=== PATIENT | female | born 2000 | race Caucasian/White ===

== ENCOUNTER 2023-04-17 03:25 | Emergency (ER) | payer SELFPAY ==
[2023-04-17 04:57] LABS: #Basophils 0.1 thou/uL (0.0-0.2); #Eosinphils 0.1 thou/uL (0.0-0.7); #Monocytes 0.4 thou/uL (0.11-0.59); #Neutrophils 7.7 thou/uL (1.40-6.50); %Basophils 0.8 % (0.0-1.0); %Eosinophils 0.7 % (0.0-10.0); %Lymphocytes 20.1 % (21.0-51.0); %Neutrophils 74.2 % (42.0-75.0); Hematocrit 36.5 % (36.0-47.0); Hemoglobin 12.3 g/dL (12.0-16.0); Mean Corpuscular HGB CONC 33.7 g/dL (32.0-36.0); Mean Corpuscular Hemoglobin 30.7 pg (27.0-31.0); Mean Platelet Volume 9.4 fL (7.4-10.4); Platelet Count 332 10x3/uL (130-400); RBC Distribution Width 11.8 % (11.5-14.5); Red Blood Cell (RBC) Count 4.01 mill/uL (4.20-5.40); White Blood Cell (WBC) Count 10.4 10x3/uL (4.8-10.8)
[2023-04-17 05:22] LABS: Albumin 4.1 g/dL (3.5-5.0)
[2023-04-17 05:23] LABS: Chloride 101 mmol/L (98-107); Potassium 2.7 mmol/L (3.5-5.1); Sodium 139 mmol/L (136-145)
[2023-04-17 05:24] LABS: Calcium 8.5 mg/dL (7.8-10.44); Glucose 89 mg/dL (70-105)
[2023-04-17 05:25] LABS: Globulin 2.8 g/dL (2.4-3.5); Protein, Total 6.9 g/dL (6.0-8.3)
[2023-04-17 05:26] LABS: Anion Gap 16 mmol/L (10-20); Bilirubin, Total 0.6 mg/dL (0.2-1.2); Carbon Dioxide 25 mmol/L (22-29)
[2023-04-17 05:27] LABS: Alcohol 215.8 mg/dL (Less than 10); Alkaline Phosphatase 64 U/L (40-110); BHCG - Serum Negative (NEGATIVE); Pregs Control Background? CLEAR/WHITE (CLR/WHITE); Pregs Control Bar Appear? YES (CONTROL BAR)
[2023-04-17 05:28] LABS: Calc. Creatinine Clearance 0 mL/min (70-130); Estimated GFR 104
[2023-04-17 05:29] LABS: BUN (Urea Nitrogen) 7 mg/dL (7.0-18.7)
[2023-04-17 05:30] LABS: ALT (SGPT) 10 U/L (8-55); AST (SGOT) 21 U/L (5-34)
[2023-04-17] MEDS ORDERED: Potassium Chloride 20 MEQ TAB ONE (06:18)
== END 2023-04-17 06:27 ==
LOC: ERS 03:25
DX: F10.129 Alcohol abuse with intoxication, unspecified (principal); E03.9 Hypothyroidism, unspecified; Y90.7 Blood alcohol level of 200-239 mg/100 ml
CPT/HCPCS: 36415; 80053; 80307; 84703; 85025; 99284